=== PATIENT | male | born 1975 | race Caucasian/White ===

== ENCOUNTER → 2016-08-15 07:08 | Day surgery (SDC) | payer OTHER ==
[~2016-08-15 07:08] MED LIST: ACTOS15 MG PO; CLARITIN 10 MG10 MG PO; DICLOFENAC SODI50 MG PO; PRILOSEC10 M1 PO
== END | disposition home or self-care (01) ==
LOC: D.OPS 07:08 → D.PAN 08:00 → D.OPS 10:00
DX: Z30.8 Encounter for other contraceptive management (principal); Z01.810 Encounter for preprocedural cardiovascular examination; Z01.811 Encounter for preprocedural respiratory examination; Z01.812 Encounter for preprocedural laboratory examination; Z53.9 Procedure and treatment not carried out, unspecified reason